=== PATIENT | female | born 1955 | race Caucasian/White ===

== ENCOUNTER 2016-02-11 01:21 | Emergency (ER) | payer OTHER ==
[~2016-02-11] VITALS: Ht 144.8 cm; Wt 58.5 kg
[~2016-02-11 01:21] MED LIST: ATOR10TA65 PO; CARB100T2 PO; CEPH-443 PO; CYCL-319 PO; GABA-526 PO; LEVE-5 PO; OXYC15TA PO; POLY17PO6 PO; PRIM250T37 PO
[2016-02-11 01:34] VITALS: Ht 144.8 cm; Wt 58.5 kg
[2016-02-11] MEDS ORDERED: HYDROCODONE/APAP (5/325) TAB PO ONE (05:00)
[2016-02-11] MEDS ORDERED: PHENAZOPYRIDINE 100 MG TAB PO ONE (05:00)
[2016-02-11 05:28] LABS: URINE BLOOD (Dip) POC Trace-intact (NEGATIVE)
[2016-02-11] MEDS ORDERED: BACTDS PO (05:41)
[2016-02-11] MEDS ORDERED: PHEN-538 PO (05:42)
--- NOTE | 2016-02-11 05:46 | ERD ---
ER Documentation Chief Complaint Date/Time DATE: 02/11/16 TIME: 05:43 Chief Complaint leaking urine around cathetar since this afternoon, burning, back pain HPI This is a 60-year-old female that presents to the ER stating that she is leaking urine from her catheter. Patient states that she has bruising around the catheter area. She denies any fevers or chills. Patient admits to back pain which is chronic in nature patient has sciatica. She denies any nausea vomiting or diarrhea. ROS 12 point review of systems was done, all negative except per HPI. Medications Home Meds Active Scripts Phenazopyridine Hcl* (Pyridium*) 200 Mg Tab, 200 MG PO TID Y for URINARY PAIN, # 6 TAB Prov:BRYAN BERG 02/11/16 Sulfamethoxazole-Trimethoprim* (Bactrim* DS) 800-160 Mg Tab, 1 TAB PO BID for 7 Days, TAB Prov:BRYAN BERG 02/11/16 Cephalexin* (Keflex*) 500 Mg Capsule, 500 MG PO QID for 7 Days, CAP Prov:BRYAN BERG 01/07/16 Polyethylene Glycol* (Miralax*) 17 Gm Powd.pack, 17 GM PO DAILY, #7 Prov:REAL GAYLE MD 11/08/15 Reported Medications Gabapentin* (Gabapentin*) 600 Mg Tablet, 600 MG PO TID Y for PAIN, #90 TAB 11/04/15 Oxycodone Hcl* (IR) (Oxycodone Hcl*) 15 Mg Tablet, 15 MG PO Q6 Y for PAIN, TAB 11/04/15 Cyclobenzaprine Hcl* (Cyclobenzaprine Hcl*) 10 Mg Tablet, 10 MG PO Q8 Y for MUSCLE SPASMS, #60 TAB 11/04/15 Primidone* (Mysoline*) 250 Mg Tablet, 250 MG PO QID, TAB 11/04/15 Levetiracetam* (Keppra*) 500 Mg Tablet, 500 MG PO QID, TAB 11/04/15 Carbamazepine* (Carbamazepine*) 100 Mg Tab.chew, 200 MG PO QID, #90 TAB.CHEW 11/04/15 Atorvastatin Calcium (Atorvastatin Calcium) 10 Mg Tablet, 10 MG PO QHS, #30 TAB 11/04/15 Allergies Allergies: Coded Allergies: codeine (Verified Allergy, Severe, 12/06/15) PMhx/Soc History of Surgery: No Anesthesia Reaction: No Hx Neurological Disorder: Yes (seizures) Hx Respiratory Disorders: No Hx Cardiac Disorders: Yes (htn) Hx Psychiatric Problems: No Hx Miscellaneous Medical Probl: Yes (URINARY RETENTION, chronic back pain) Hx Alcohol Use: No Hx Substance Use: No Hx Tobacco Use: No Physical Exam Vitals Vital Signs Date Time Temp Pulse Resp B/P Pulse Ox O2 Delivery O2 Flow Rate FiO2 02/11/16 01:34 98.7 94 20 139/62 100 Physical Exam GENERAL: The patient is well developed and appropriate for usual state of health , in no apparent distress. HEENT: Atraumatic. CHEST: Clear to auscultation bilaterally. There are no rales, wheezes or rhonchi. HEART: Regular rate and rhythm. No murmurs, clicks, rubs or gallops. ABDOMEN: Soft, nontender and nondistended. Good bowel sounds. No rebound or guarding. No gross peritonitis. No gross organomegaly or masses. No Olivo sign or McBurney point tenderness. BACK: No midline or flank tenderness. EXTREMITIES: Full range of motion. Grossly neurovascularly intact. NEURO: Alert and oriented Results 24 hrs Laboratory Tests Test 02/11/16 05:27 Bedside Urine Blood Trace-intact Bedside Urine Glucose (UA) 0.1% Bedside Urine Ketones (LAB) Trace Bedside Urine Leukocyte Esterase (L 3+ Bedside Urine Nitrite (LAB) Positive Bedside Urine Protein (LAB) 3+ Bedside Urine pH (LAB) 5.0 Current Medications Medications (Trade) Dose Ordered Sig/Michael Route PRN Reason Start Time Stop Time Status Last Admin Dose Admin Phenazopyridine HCl (Pyridium) 200 mg ONCE ONCE PO 02/11/16 05:00 02/11/16 05:01 DC 02/11/16 05:20 Acetaminophen/ Hydrocodone Bitart (Fabius (5/325)) 1 tab ONCE ONCE PO 02/11/16 05:00 02/11/16 05:01 DC 02/11/16 05:20 Ceftriaxone Sodium (Rocephin) 1 gm ONCE ONCE IM 02/11/16 06:00 02/11/16 06:01 02/11/16 05:41 Procedures/MDM This is a 60-year-old female presents to the ER with burning around catheter and leaking of urine from catheter. Patient does have a pretty significant urinary tract infection. She was given a shot of Rocephin here in the ER there were no complications. She will be sent home with Bactrim. I doubt pyelonephritis as patient is afebrile and well-appearing. Patient is to follow- up with her primary care doctor within 1-2 days or return to ER sooner if symptoms worsen. Plan was discussed with the patient she understands and agrees with plan Departure Diagnosis: Primary Impression: UTI (urinary tract infection) Condition: Stable Patient Instructions: Understanding Urinary Tract Infections (UTIs) Referrals: [facility] (PCP) Additional Instructions: Call your primary care doctor TOMORROW for an appointment during the next 1-2 days.See the doctor sooner or return here if your condition worsens before your appointment time. BRYAN BERG Feb 11, 2016 05:46
[2016-02-11 05:52] LABS: ADD UMIC YES; URINE BILIRUBIN (Dip) 1+ (NEGATIVE); URINE BLOOD (Dip) 1+ (NEGATIVE); URINE COLOR AMBER (YELLOW); URINE KETONES (Dip) TRACE (NEGATIVE); URINE LEUKOCYTE ESTERASE (Dip) 2+ (NEGATIVE); URINE NITRITE (Dip) POSITIVE (NEGATIVE); URINE TOTAL PROTEIN (Dip) 2+ (NEGATIVE); URINE UROBILINOGEN (Dip) >8.0 E.U./dL (0.1-1.0)
[2016-02-11] MEDS ORDERED: CEFTRIAXONE 1 GM INJ IM ONE (06:00)
[2016-02-11 06:08] VITALS: BP 131/64; PULSE 101; RESP 18; TEMP 96.6
[2016-02-11 06:42] LABS: BACTERIA,URINE FEW; SQUAMOUS EPITHELIAL CELL,UR FEW
[2016-02-11 09:13] LABS: ICTOTEST NEGATIVE (NEGATIVE)
== END 2016-02-11 06:13 | disposition home or self-care (01) ==
LOC: FTE 01:21
DX: N39.0 Urinary tract infection, site not specified (principal); I10 Essential (primary) hypertension
CPT/HCPCS: 51702; 81001; 87086; J0696; Z7610; 81003; 96372

== ENCOUNTER 2016-07-08 20:34 | Emergency (ER) | payer OTHER ==
[~2016-07-08] VITALS: Ht 157.5 cm; Wt 58.0 kg
[~2016-07-08 20:34] MED LIST changes: +BACTDS PO; +PHEN-538 PO
[2016-07-08 21:12] VITALS: Ht 157.5 cm; Wt 58.0 kg
[2016-07-08 22:43] LABS: URINE BLOOD (Dip) POC Negative (NEGATIVE)
--- NOTE | 2016-07-08 23:00 | ERD ---
ER Documentation Chief Complaint Date/Time DATE: 07/08/16 TIME: 23:00 Chief Complaint pt reports nothing coming out when she self caths HPI 60-year-old female with a history of herniated disks, sciatica, urinary retention with a chronic Woodward catheter presenting with no output from her Woodward. She states this started about 4 hours ago. She complains of suprapubic distention and pain. She denies any fevers, chills, nausea, vomiting, diarrhea. Her Woodward catheter was replaced about 1 week ago. She does have a history of chronic UTIs. ROS All systems reviewed and are negative except as per history of present illness. Medications Home Meds Active Scripts Cephalexin* (Keflex*) 500 Mg Capsule, 500 MG PO TID for 10 Days, CAP Prov:SIRISHA WALLS MD 07/08/16 Phenazopyridine Hcl* (Pyridium*) 200 Mg Tab, 200 MG PO TID Y for URINARY PAIN, # 6 TAB Prov:BRYAN BERG 02/11/16 Sulfamethoxazole-Trimethoprim* (Bactrim* DS) 800-160 Mg Tab, 1 TAB PO BID for 7 Days, TAB Prov:BRYAN BERG 02/11/16 Cephalexin* (Keflex*) 500 Mg Capsule, 500 MG PO QID for 7 Days, CAP Prov:BRYAN BERG 01/07/16 Polyethylene Glycol* (Miralax*) 17 Gm Powd.pack, 17 GM PO DAILY, #7 Prov:REAL GAYLE MD 11/08/15 Reported Medications Gabapentin* (Gabapentin*) 600 Mg Tablet, 600 MG PO TID Y for PAIN, #90 TAB 11/04/15 Oxycodone Hcl* (IR) (Oxycodone Hcl*) 15 Mg Tablet, 15 MG PO Q6 Y for PAIN, TAB 11/04/15 Cyclobenzaprine Hcl* (Cyclobenzaprine Hcl*) 10 Mg Tablet, 10 MG PO Q8 Y for MUSCLE SPASMS, #60 TAB 11/04/15 Primidone* (Mysoline*) 250 Mg Tablet, 250 MG PO QID, TAB 11/04/15 Levetiracetam* (Keppra*) 500 Mg Tablet, 500 MG PO QID, TAB 11/04/15 Carbamazepine* (Carbamazepine*) 100 Mg Tab.chew, 200 MG PO QID, #90 TAB.CHEW 11/04/15 Atorvastatin Calcium (Atorvastatin Calcium) 10 Mg Tablet, 10 MG PO QHS, #30 TAB 11/04/15 Allergies Allergies: Coded Allergies: codeine (Verified Allergy, Severe, 12/06/15) PMhx/Soc History of Surgery: No Anesthesia Reaction: No Hx Neurological Disorder: Yes (seizures) Hx Respiratory Disorders: No Hx Cardiac Disorders: Yes (htn) Hx Psychiatric Problems: No Hx Miscellaneous Medical Probl: Yes (URINARY RETENTION, chronic back pain) Hx Alcohol Use: No Hx Substance Use: No Hx Tobacco Use: No FmHx Family History: No diabetes Physical Exam Vitals Vital Signs Date Time Temp Pulse Resp B/P Pulse Ox O2 Delivery O2 Flow Rate FiO2 07/08/16 21:12 99.2 94 20 134/66 96 Physical Exam Const: Well-appearing, nontoxic, no distress Head: Atraumatic Eyes: Normal Conjunctiva ENT: Normal External Ears, Nose and Mouth. Neck: Full range of motion..~ No meningismus. Resp: Clear to auscultation bilaterally Cardio: Regular rate and rhythm, no murmurs Abd: Soft, suprapubic distention with mild tenderness to palpation, no rebound or guarding.Normal bowel sounds Exam: Woodward noted without attached bag Skin: No petechiae or rashes Back: No midline or flank tenderness Ext: No cyanosis, or edema Neur: Awake and alert Psych: Normal Mood and Affect Results 24 hrs Laboratory Tests Test 07/08/16 22:46 Bedside Urine pH (LAB) 7.0 Bedside Urine Protein (LAB) 1+ Bedside Urine Glucose (UA) Negative Bedside Urine Ketones (LAB) Trace Bedside Urine Blood Negative Bedside Urine Nitrite (LAB) Negative Bedside Urine Leukocyte Esterase (L 3+ Procedures/MDM Patient is presenting with malfunction of her Woodward catheter. Her Woodward was replaced and per nurse, her previous Woodward was not inserted in all the way. There was urine output after the Woodward was exchanged. Patient had immediate relief. Urine dip showed evidence of possible infection. Patient will be discharged with Keflex for possible UTI. Return precautions were given. She will follow-up with her primary care physician as scheduled. Departure Diagnosis: Primary Impression: Malfunction of indwelling urinary catheter Encounter type: initial encounter Qualified Code: T83.011A - Malfunction of indwelling urinary catheter, initial encounter Condition: Stable EKSIRISHA BATEMAN MD Jul 08, 2016 23:00
[2016-07-08] MEDS ORDERED: CEPH-443 PO (23:02)
== END 2016-07-08 23:23 | disposition home or self-care (01) ==
LOC: E/R 20:34
DX: T83.011A Breakdown (mechanical) of indwelling urethral catheter, initial encounter (principal); I10 Essential (primary) hypertension; Y73.8 Miscellaneous gastroenterology and urology devices associated with adverse incidents, not elsewhere classified
CPT/HCPCS: 81003

== ENCOUNTER 2016-08-15 21:50 | Emergency (ER) | payer OTHER ==
[~2016-08-15] VITALS: Ht 147.3 cm; Wt 62.0 kg
[2016-08-15 21:53] VITALS: Ht 147.3 cm; Wt 62.0 kg
[2016-08-15 22:13] LABS: URINE BLOOD (Dip) POC Negative (NEGATIVE)
[2016-08-15] MEDS ORDERED: HYDROmorphONE 2 MG/ML SYG IM STA (22:17)
[2016-08-15] MEDS ORDERED: KETOROLAC 60 MG INJ IM STA (22:17)
--- NOTE | 2016-08-15 22:40 | ERD ---
ER Documentation Chief Complaint Date/Time DATE: 08/15/16 TIME: 22:39 Chief Complaint C/O BILATERAL LEG PAIN X 2 HRS HPI This 60-year-old female history of chronic knee pain comes her bilateral leg pain for the past 2 hours. No fevers no chills. No trauma. This is an acute exacerbation of her chronic pain. Moderate in intensity. No other current issues. ROS All systems reviewed and are negative except as per history of present illness. Medications Home Meds Active Scripts Cephalexin* (Keflex*) 500 Mg Capsule, 500 MG PO TID for 10 Days, CAP Prov:SIRISHA WALLS MD 07/08/16 Phenazopyridine Hcl* (Pyridium*) 200 Mg Tab, 200 MG PO TID Y for URINARY PAIN, # 6 TAB Prov:BRYAN BERG 02/11/16 Sulfamethoxazole-Trimethoprim* (Bactrim* DS) 800-160 Mg Tab, 1 TAB PO BID for 7 Days, TAB Prov:BRYAN BERG 02/11/16 Cephalexin* (Keflex*) 500 Mg Capsule, 500 MG PO QID for 7 Days, CAP Prov:BRYAN BERG 01/07/16 Polyethylene Glycol* (Miralax*) 17 Gm Powd.pack, 17 GM PO DAILY, #7 Prov:REAL GAYLE MD 11/08/15 Reported Medications Gabapentin* (Gabapentin*) 600 Mg Tablet, 600 MG PO TID Y for PAIN, #90 TAB 11/04/15 Oxycodone Hcl* (IR) (Oxycodone Hcl*) 15 Mg Tablet, 15 MG PO Q6 Y for PAIN, TAB 11/04/15 Cyclobenzaprine Hcl* (Cyclobenzaprine Hcl*) 10 Mg Tablet, 10 MG PO Q8 Y for MUSCLE SPASMS, #60 TAB 11/04/15 Primidone* (Mysoline*) 250 Mg Tablet, 250 MG PO QID, TAB 11/04/15 Levetiracetam* (Keppra*) 500 Mg Tablet, 500 MG PO QID, TAB 11/04/15 Carbamazepine* (Carbamazepine*) 100 Mg Tab.chew, 200 MG PO QID, #90 TAB.CHEW 11/04/15 Atorvastatin Calcium (Atorvastatin Calcium) 10 Mg Tablet, 10 MG PO QHS, #30 TAB 11/04/15 Allergies Allergies: Coded Allergies: codeine (Verified Allergy, Severe, 12/06/15) PMhx/Soc History of Surgery: No Anesthesia Reaction: No Hx Neurological Disorder: Yes (SE) Hx Respiratory Disorders: No Hx Cardiac Disorders: No Hx Psychiatric Problems: No Hx Miscellaneous Medical Probl: Yes (CHOL, SCIATICA, INDWELLING ANSARI ) Hx Alcohol Use: No Hx Substance Use: No Hx Tobacco Use: No Smoking Status: Never smoker Physical Exam Vitals Vital Signs Date Time Temp Pulse Resp B/P Pulse Ox O2 Delivery O2 Flow Rate FiO2 08/15/16 21:53 98.5 102 20 146/74 100 Physical Exam Const: [] Head: Atraumatic Eyes: Normal Conjunctiva ENT: Normal External Ears, Nose and Mouth. Neck: Full range of motion..~ No meningismus. Resp: Clear to auscultation bilaterally Cardio: Regular rate and rhythm, no murmurs Abd: Soft, non tender, non distended. Normal bowel sounds Skin: No petechiae or rashes Back: No midline or flank tenderness Ext: No cyanosis, or edema Neur: Awake and alert Psych: Normal Mood and Affect Results 24 hrs Laboratory Tests Test 08/15/16 22:17 Bedside Urine pH (LAB) 6.0 Bedside Urine Protein (LAB) 1+ Bedside Urine Glucose (UA) Negative Bedside Urine Ketones (LAB) Trace Bedside Urine Blood Negative Bedside Urine Nitrite (LAB) Negative Bedside Urine Leukocyte Esterase (L 1+ Current Medications Medications (Trade) Dose Ordered Sig/Michael Route PRN Reason Start Time Stop Time Status Last Admin Dose Admin Hydromorphone HCl (Dilaudid) 2 mg ONCE STAT IM 08/15/16 22:17 08/15/16 22:18 DC 08/15/16 22:24 Ketorolac Tromethamine (Toradol) 60 mg ONCE STAT IM 08/15/16 22:17 08/15/16 22:18 DC 08/15/16 22:24 Procedures/MDM Medical decision-makin 1-year-old female with chronic pain. Pain treated. No evidence of trauma. Patient discharged home. Departure Diagnosis: Primary Impression: Chronic pain Chronic pain type: other chronic pain Qualified Code: G89.29 - Other chronic pain Condition: Stable INDIRA BURROUGHS Aug 15, 2016 22:40
[2016-08-15] MEDS ORDERED: HYDR2TAB36 PO (22:42)
[2016-08-15 23:10] VITALS: BP 117/58; PULSE 85; RESP 18
== END 2016-08-15 23:10 | disposition home or self-care (01) ==
LOC: E/R 21:50
DX: G89.29 Other chronic pain (principal); M79.605 Pain in left leg
CPT/HCPCS: 81003; 96372; J1170; J1885; Z7502

== ENCOUNTER 2016-12-12 11:12 | Emergency (ER) | payer OTHER ==
[~2016-12-12] VITALS: Ht 157.5 cm; Wt 70.0 kg
[~2016-12-12 11:12] MED LIST changes: +HYDR2TAB36 PO
[2016-12-12 11:17] VITALS: Ht 157.5 cm; Wt 70.0 kg
[2016-12-12] MEDS ORDERED: ASPIRIN 325 MG TAB PO STA (11:18)
[2016-12-12] MEDS ORDERED: NITROGLYCERIN (SL) 0.4 MG TAB SL PRN (11:30)
[2016-12-12] MEDS ORDERED: ONDANSETRON 4 MG INJ IV STA ×2 (12:03→14:09)
[2016-12-12] MEDS ORDERED: morphine 4 MG/ML VIAL IV STA (12:03)
[2016-12-12] MEDS ORDERED: SOD CHLORIDE 0.9% 1,000 ML IV STA (12:03)
[2016-12-12] MEDS ORDERED: SOD CHLORIDE 0.9% 100 ML ONE (13:01)
[2016-12-12] MEDS ORDERED: IOHEXOL 100 ML ONE (13:01)
--- NOTE | 2016-12-12 13:06 | RADRPT ---
PROCEDURE: XR Chest. CLINICAL INDICATION: Chest pain. TECHNIQUE: Single frontal view. COMPARISON: 01/03/2013. FINDINGS: The lungs are clear. The heart size is normal. There is calcification in the aorta consistent with atherosclerosis. There is no pleural effusion. There is no pneumothorax. IMPRESSION: 1. Atherosclerosis. 2. Otherwise normal chest x-ray. 3. No change from 01/03/2013. RPTAT: QQ .Zeferino Sorto MD, MD Date Time Electronically viewed and signed by .Zeferino Sorto MD, MD on 12/12/2016 13:05 .R/
--- NOTE | 2016-12-12 13:06 | RADRPT ---
PROCEDURE: XR Chest. CLINICAL INDICATION: Chest pain. TECHNIQUE: Single frontal view. COMPARISON: 01/03/2013. FINDINGS: The lungs are clear. The heart size is normal. There is calcification in the aorta consistent with atherosclerosis. There is no pleural effusion. There is no pneumothorax. IMPRESSION: 1. Atherosclerosis. 2. Otherwise normal chest x-ray. 3. No change from 01/03/2013. RPTAT: QQ .Zeferino oSrto MD, MD Date Time Electronically viewed and signed by .Zeferino Sorto MD, MD on 12/12/2016 13:05 .R/
--- NOTE | 2016-12-12 13:57 | ERD ---
ER Documentation Chief Complaint Chief Complaint BIB [facility] 81 FOR CP STARTED TODAY. ASA 162MG AND 2 SPRAYS NTG [employer]. NO RELIEF HPI This is a 61-year-old female with a known history of an indwelling Ansari catheter due to neurogenic bladder who presents to the emergency department complaining of a sudden onset of chest pressure that began 1 day ago and progressively worsened just prior to arrival. The patient indicates that the pain is 10 out of 10 in intensity. She also stated that she was experiencing shortness of breath at the onset of the chest pain that was worse whenever she took in a deep breath. She denies any history of shortness of breath at rest or exertion and no swelling of her lower extremities. She has no calf tenderness. She denies any recent travel or prolonged immobilization. She had no fevers or shaking or chills. EMS administered 2 sprays of nitroglycerin and give 162 mg of aspirin but there is no improvement of her symptoms. She denies any radiation of the chest pressure to the neck arm or back. She has no numbness or tingling to her upper or lower extremities. She denies any abdominal pain. The patient states she has a history of seizures and is compliant with all her medications. ROS All systems reviewed and are negative except as per history of present illness. Medications Home Meds Active Scripts Hydromorphone Hcl* (Dilaudid*) 2 Mg Tablet, 1 MG PO Q3H Y for PAIN, #14 TAB Prov:INDIRA BURROUGHS 08/15/16 Cephalexin* (Keflex*) 500 Mg Capsule, 500 MG PO TID for 10 Days, CAP Prov:SIRISHA WALLS MD 07/08/16 Phenazopyridine Hcl* (Pyridium*) 200 Mg Tab, 200 MG PO TID Y for URINARY PAIN, # 6 TAB Prov:OTISBRYAN C 02/11/16 Sulfamethoxazole-Trimethoprim* (Bactrim* DS) 800-160 Mg Tab, 1 TAB PO BID for 7 Days, TAB Prov:OTIS,BRYAN C 02/11/16 Cephalexin* (Keflex*) 500 Mg Capsule, 500 MG PO QID for 7 Days, CAP Prov:OTIS,BRYAN C 01/07/16 Polyethylene Glycol* (Miralax*) 17 Gm Powd.pack, 17 GM PO DAILY, #7 Prov:REAL GAYLE MD 11/08/15 Reported Medications Gabapentin* (Gabapentin*) 600 Mg Tablet, 600 MG PO TID Y for PAIN, #90 TAB 11/04/15 Oxycodone Hcl* (IR) (Oxycodone Hcl*) 15 Mg Tablet, 15 MG PO Q6 Y for PAIN, TAB 11/04/15 Cyclobenzaprine Hcl* (Cyclobenzaprine Hcl*) 10 Mg Tablet, 10 MG PO Q8 Y for MUSCLE SPASMS, #60 TAB 11/04/15 Primidone* (Mysoline*) 250 Mg Tablet, 250 MG PO QID, TAB 11/04/15 Levetiracetam* (Keppra*) 500 Mg Tablet, 500 MG PO QID, TAB 11/04/15 Carbamazepine* (Carbamazepine*) 100 Mg Tab.chew, 200 MG PO QID, #90 TAB.CHEW 11/04/15 Atorvastatin Calcium (Atorvastatin Calcium) 10 Mg Tablet, 10 MG PO QHS, #30 TAB 11/04/15 Allergies Allergies: Coded Allergies: codeine (Verified Allergy, Severe, 12/06/15) PMhx/Soc History of Surgery: No Anesthesia Reaction: No Hx Neurological Disorder: Yes (SE) Hx Respiratory Disorders: No Hx Cardiac Disorders: No Hx Psychiatric Problems: No Hx Miscellaneous Medical Probl: Yes (CHOL, SCIATICA, INDWELLING ANSARI ) Hx Alcohol Use: No Hx Substance Use: No Hx Tobacco Use: No Smoking Status: Never smoker Physical Exam Vitals Vital Signs Date Time Temp Pulse Resp B/P Pulse Ox O2 Delivery O2 Flow Rate FiO2 12/12/16 13:15 77 18 120/70 98 Room Air 12/12/16 11:17 97.9 80 19 155/88 100 Physical Exam Constitutional:Well-developed. Well-nourished. HEENT:Normocephalic. Atraumatic.Pupils were equal round reactive to light. Moist mucous membranes.No tonsillar exudates. Neck: No nuchal rigidity. No lymphadenopathy. No posterior cervical spine tenderness or step-offs. Respiratory: Not using accessory muscles of respiration.Lungs were clear to auscultation bilaterally. No rhonchi. No rales. No wheezing. Cardiovascular: Regular rate regular rhythm.No murmurs. No rubs were appreciated.S1, S2 normal. Distal pulses are palpable 2+ bilaterally. GI: Abdomen was soft. Nontender. Non Distended. No pulsatile abdominal masses or bruits. No rebound. No guarding. Bowel sounds were present and normal. : Indwelling Ansari catheter Muscle skeletal: Full range of motion of both the upper and lower extremities bilaterally.Normal muscle tone.No assymetrical calf tenderness or swelling. Skin: No petechia, no purpura. No lesions on the palms or the soles of the feet. No maculopapular rash. NEURO: Patient was alert, awake, orientated x3.No facial droop. Gait observed and normal with no ataxia.Speech had regular rate and rhythm. No focal neurological deficits. Result Diagram: 12/12/16 1130 12/12/16 1130 Results 24 hrs Laboratory Tests Test 12/12/16 11:30 White Blood Count 3.310^3/ul Red Blood Count 3.8110^6/ul Hemoglobin 11.9g/dl Hematocrit 34.2% Mean Corpuscular Volume 89.8fl Mean Corpuscular Hemoglobin 31.2pg Mean Corpuscular Hemoglobin Concent 34.8g/dl Red Cell Distribution Width 12.9% Platelet Count 91089^3/UL Mean Platelet Volume 9.4fl Neutrophils % 50.3% Lymphocytes % 35.9% Monocytes % 10.8% Eosinophils % 1.8% Basophils % 0.9% Nucleated Red Blood Cells % 0.0/100WBC Neutrophils # 1.710^3/ul Lymphocytes # 1.210^3/ul Monocytes # 0.410^3/ul Eosinophils # 0.110^3/ul Basophils # 0.010^3/ul Nucleated Red Blood Cells # 0.010^3/ul Prothrombin Time 13.3Sec Prothrombin Time Ratio 1.0 INR International Normalized Ratio 1.01 Activated Partial Thromboplast Time 30.0Sec Sodium Level 133mmol/L Potassium Level 4.2mmol/L Chloride Level 94mmol/L Carbon Dioxide Level 26mmol/L Anion Gap 17 Blood Urea Nitrogen 12mg/dl Creatinine 0.46mg/dl Glucose Level 95mg/dl Calcium Level 9.1mg/dl Total Bilirubin 0.1mg/dl Direct Bilirubin 0.00mg/dl Indirect Bilirubin 0.1mg/dl Aspartate Amino Transf (AST/SGOT) 35IU/L Alanine Aminotransferase (ALT/SGPT) 38IU/L Alkaline Phosphatase 222IU/L Creatine Kinase 66IU/L Creatine Kinase Index 3.2 Creatinine Kinase MB (Mass) 2.13ng/ml Troponin I < 0.012ng/ml B-Type Natriuretic Peptide 38PG/ML Total Protein 8.7g/dl Albumin 4.8g/dl Globulin 3.90g/dl Albumin/Globulin Ratio 1.23 Current Medications Medications (Trade) Dose Ordered Sig/Michael Route PRN Reason Start Time Stop Time Status Last Admin Dose Admin Aspirin (Aspirin) 325 mg ONCE STAT PO 12/12/16 11:18 12/12/16 11:19 DC 12/12/16 11:33 Nitroglycerin 1 tab 1 tab Q5M UP TO 3 DOSES PRN SL CHEST PAIN 12/12/16 11:30 12/12/16 11:33 Sodium Chloride (NS) 1,000 ml @ 1,000 mls/hr Q1H STAT IV 12/12/16 12:03 12/12/16 13:02 DC 12/12/16 12:28 Morphine Sulfate (morphine) 4 mg ONCE STAT IV 12/12/16 12:03 12/12/16 12:06 DC 12/12/16 12:28 Ondansetron HCl 4 mg 4 mg ONCE STAT IV 12/12/16 12:03 12/12/16 12:06 DC 12/12/16 12:28 Iohexol 100 ml @ ud STK-MED ONCE .ROUTE 12/12/16 13:01 12/12/16 13:02 DC Sodium Chloride (NS) 100 ml @ ud STK-MED ONCE .ROUTE 12/12/16 13:01 12/12/16 13:02 DC Hydromorphone HCl (Dilaudid) 1 mg ONCE STAT IV 12/12/16 14:09 12/12/16 14:10 DC Ondansetron HCl (Zofran Inj) 4 mg ONCE STAT IV 12/12/16 14:09 12/12/16 14:10 DC Procedures/MDM The patient presented to the emergency department with chest pain. My clinical evaluation and workup was to distinguish minor causes of chest pain from acute life threatening conditions such as myocardial infarction, pulmonary embolism, aortic dissection, esophageal rupture, cardiac tamponade. The patient was placed on a front desk monitor and continuous pulse oximetry. IV access established by nursing staff. Further dose of nitroglycerin and aspirin but there is no improvement of her symptoms. 12 Lead EKG tracing ordered and reviewed by myself showed: Normal sinus rhythm of 94 bpm and no arrhythmia. LA interval normal. QRS duration normal. No ST segment elevation No ST segment depression. No changes consistent with acute ischemia. Patient's troponin was within normal limits. There is no abnormal findings on the patient's EKG. The patient given analgesic medication has no cardiac risk factors therefore did feel she can be safely discharged home with outpatient follow-up and I did feel her symptoms more likely result of pleurisy versus myocardial ischemia. Departure Diagnosis: Primary Impression: Shortness of breath Additional Impression: Pleurisy Condition: Serious LUCYBUNNYMYKE Dec 12, 2016 13:57
[2016-12-12] MEDS ORDERED: HYDROmorphONE 1 MG/ML SYG IV STA (14:09)
--- NOTE | 2016-12-12 14:42 | RADRPT ---
PROCEDURE: CT Pulmonary Angiogram. CLINICAL INDICATION: Chest pain and shortness of breath. TECHNIQUE: CT pulmonary angiogram and a CT scan of the chest with contrast was performed. The pat ient was scanned following the uncomplicated intravenous administration of 100 cc of Omnipaque-350 i ntravenous contrast. 2-D coronal reformatted images were obtained from the axial source images. In addition, 3-D post processing was performed. Total exam DLP is 326.80 mGy-cm. CTDIvol is 49.29 mG y. One or more of the following dose reduction techniques were used: Automated exposure control, ad justment of the mA and/or kV according to patient size, use of iterative reconstruction technique. COMPARISON: Chest radiograph earlier the same day. FINDINGS: The pulmonary arteries are normal with no filling defect or lack of enhancement to suggest pulmonary artery embolism. The lungs are clear. There is no pulmonary airspace or interstitial disease. There is no pulmonary nodule or mass lesion. There is no pneumothorax. There is no mediastinal or hilar lymphadenopathy or mass. There is no pleural effusion. There is no pericardial effusion. There is calcification in the aorta consistent with atherosclerosis. The thoracic aorta is otherwise normal with no aneurysm or dissection. Images through the upper abdomen demonstrate normal visualized portions of the liver, spleen, and ad renals. There are acute fractures of the right third, fourth, fifth, sixth, and seventh ribs posteriorly. Th ere is no other fracture or lytic lesion. There are degenerative changes of the spine. IMPRESSION: 1. Normal CT pulmonary angiogram with no evidence of pulmonary artery embolism. 2. Atherosclerosis. 3. Acute fractures of the right third, fourth, fifth, and sixth ribs posteriorly. 4. Degenerative changes of the spine. 5. Otherwise unremarkable CT scan of the chest. RPTAT: QQ .Zeferino Sorto MD, MD Date Time Electronically viewed and signed by .Zeferino Sorto MD, on 12/12/2016 14:42 .R/
--- NOTE | 2016-12-12 14:57 | QN ---
Documentation Comment Dr Love did endorse to me the patient pending CT PE study. IMPRESSION: 1. Normal CT pulmonary angiogram with no evidence of pulmonary artery embolism. 2. Atherosclerosis. 3. Acute fractures of the right third, fourth, fifth, and sixth ribs posteriorly. 4. Degenerative changes of the spine. 5. Otherwise unremarkable CT scan of the chest. RPTAT: QQ The patient did note that she had a mechanical fall approximately 4 days ago. This likely explains the patient's right-sided rib fractures. The patient's pain is well controlled. She has chronic pain and takes oxycodone at home, she has this medication at home. The patient was given an incentive spirometer. We will the patient does have multiple rib fractures she has no evidence of flail chest, she is resting comfortably and her pain is well controlled. The patient has appropriate pain medication on an outpatient basis. I believe a trial of discharge will be most appropriate. It would benefit the patient to be on her feet and moving around. The patient was advised on how to use an incentive spirometer and will be discharged home. She was advised to close primary care follow-up. Additional diagnostic impression: Acute closed right-sided rib fractures The patient was discharged according to Dr. Winston's plan. SONYA RAYO MD Dec 12, 2016 14:57
[2016-12-12 15:31] VITALS: BP 125/89; PULSE 95; RESP 22; TEMP 97.9
== END 2016-12-12 16:04 | disposition home or self-care (01) ==
LOC: E/R 11:12
DX: R06.02 Shortness of breath (principal); R09.1 Pleurisy
CPT/HCPCS: 71010; 71275; 80053; 82550; 82553; 83880; 84484; 85025; 85610; 85730; 93005; 96374; 96375; 96376; J1170; J2270; J2405; J7030; Q9967; Z7502; Z7610

== ENCOUNTER 2017-01-01 13:59 | Emergency (ER) | payer SELFPAY ==
[~2017-01-01] VITALS: Wt 68.0 kg
== END 2017-01-01 17:32 | disposition left against medical advice (07) ==
LOC: FTE 13:59
DX: Z53.21 Procedure and treatment not carried out due to patient leaving prior to being seen by health care provider (principal)

== ENCOUNTER 2017-12-21 13:20 | Emergency (ER) | END 2017-12-21 15:55 | disposition home or self-care (01) ==